=== PATIENT | male | born 1935 ===

== ENCOUNTER → 2016-04-19 | Outpatient (REF) | LOC: ZLAB.WCH 10:16 | DX: Z01.89 Encounter for other specified special examinations (principal) ==

== ENCOUNTER → 2016-06-28 | Outpatient (REF) | LOC: ZLAB.WCH 10:23 | DX: Z01.89 Encounter for other specified special examinations (principal) ==

== ENCOUNTER → 2017-01-09 | Outpatient (REF) | LOC: ZLAB.WCH 14:47 | DX: Z01.89 Encounter for other specified special examinations (principal) ==

== ENCOUNTER → 2017-12-18 | Outpatient (REF) | LOC: ZLAB.WCH 16:39 | DX: Z01.89 Encounter for other specified special examinations (principal) ==

== ENCOUNTER → 2018-06-18 | Outpatient (REF) | LOC: ZLAB.WCH 19:51 | DX: Z01.89 Encounter for other specified special examinations (principal) ==